=== PATIENT | male | born 1995 | race Caucasian/White ===

== ENCOUNTER 2017-02-01 14:40 | Emergency (ER) | payer OTHER ==
[2017-02-01 14:50] VITALS: PULSE 108; RESP 16; TEMP 98.4; O2SAT 95
[2017-02-01] MEDS ORDERED: IBUPROFEN 600 MG TAB PO ONE (14:52)
--- NOTE | 2017-02-01 15:44 | EDPHY ---
H & P Time Seen by Provider: 02/01/17 14:56 HPI/ROS: This patient was walking and enthusiastically Labrador retriever who lunged at other dogs to go play twisting the patient's finger and causing immediate pain, deformity and a crack sound. Incident occurred shortly prior to arrival in his brought in by his mother by private vehicle for further evaluation of his right index finger injury. He reports the pain is moderate baseline and severe with movement of the finger. He reports some paresthesias or tingling to the distal phalanx of the affected finger. ROS: Neuro: As per HPI. No other complaints Integumentary: No lacerations. Musculoskeletal: No other injuries. Five-point ROS is otherwise negative Past Medical/Surgical History: Otherwise healthy Smoking Status: Never smoked Physical Exam: Physical Exam Vital signs are normal. General: No acute distress Eyes: Pupils equal and react to light. Extraocular motions are intact. Lungs: No respiratory distress. Cardiac: Brisk capillary refill is intact throughout. Skin: No rash or pallor. Musculoskeletal: Atraumatic normal except for right 2nd finger Right 2nd finger: Patient has gross deformity to the the index finger from the mid to distal and middle phalanx extending distally characterized by malrotation and radial deviation. The D IP joint is held in partial flexion. Neuro: Alert and oriented. The patient reports decreased sensation to light touch to the ulnar aspect of the affected finger. He has decreased, loss of 2 point discrimination in the ulnar distal phalanx but is maintained in the radial aspect of the distal phalanx. He has some limitation range of motion at the PIP I think primarily from pain. Initial differential diagnosis: Finger fracture versus dislocation versus fracture/dislocation Constitutional: Initial Vital Signs Temperature (C) 36.9 C 02/01/17 14:47 Heart Rate 108 H 02/01/17 14:47 Respiratory Rate 16 02/01/17 14:47 Blood Pressure 143/81 H 02/01/17 14:47 O2 Sat (%) 95 02/01/17 14:47 O2 Delivery Mode Room Air Allergies/Adverse Reactions: No Known Allergies Allergy (Verified 02/01/17 14:46) Home Medications: Medication Instructions Recorded NO HOME MEDS 11/19/09 MDM/Departure - MDM Diagnostics: Three-view finger x-ray 1.: Fracture of the middle phalanx with ulnar deviation angulation and mild displacement. By my interpretation Post reduction two view x-ray: near anatomic reduction with significant improvement in alignment and angulation by my interpretation Imaging Results: Imaging Impressions Finger X-Ray 02/01/17 14:53 Impression: Fracture of the middle phalanx of the right second digit. Finger X-Ray 02/01/17 15:41 Impression: Near anatomic reduction of fracture of the middle phalanx second finger. Imaging: I viewed and interpreted images myself Procedures: 1st procedure: Procedure Digital block: After verbal consent, 2% lidocaine was injected to the base of the affected finger 9 mL's,total in 3 injections using a 27-gauge needle with good effect. There were no complications. 2nd procedure: Closed reduction Indication: Fracture deformity with acute neuro deficit and mild skin tenting After verbal consent, I applied traction to the affected finger with ulnar deviation with positive reduction. Patient tolerated this well. There were no complications. Patient is then placed in Orthoglass splint Medications Given: Discontinued Medications Ibuprofen (Motrin) 600 mg PO EDNOW ONE Stop: 02/01/17 14:53 Last Admin: 02/01/17 15:02 Dose: 600 mg ED Course/Re-evaluation: I applied and Ortho Glass tear drop/radial gutter splint with assistance of our nurse and tech. Patient tolerated this well. He is neurovascularly intact post splint application. There were no complications. We counseled him regarding splint care. Discussion: Patient with displaced and angulated fracture with associated digital nerve deficits to light touch perhaps due to the pressure on the nerve from the displacement with near anatomical reduction and splinting. I counseled the patient regarding his fracture regarding his neurapraxia. Dr. aguiar's on-call patient will follow up with Dr. aguiar for further evaluation later this week. Given lack of open fracture laceration, I feel the patient has a good prognosis for return of his sensory deficit in the affected finger. - Depart Disposition: Home, Routine, Self-Care Clinical Impression: digital nerve deficit Finger fracture, right Qualifiers: Encounter type: initial encounter Finger: index finger Fracture type: closed Phalanx: middle Fracture alignment: displaced Qualified Code(s): S62.620A - Displaced fracture of middle phalanx of right index finger, initial encounter for closed fracture Condition: Good Instructions: Finger Fracture (ED) Additional Instructions: Diagnoses: 1. Displaced finger fracture 2. Digital nerve deficit to affected finger Plan: Keep splint on at all times The anesthetic should resolve over the next 2-6 hours. Ibuprofen and Tylenol for discomfort if needed Call Dr. aguiar-hand specialist arrange follow-up appointment for sometime within the next 2-5 days. Usually this type of nerve deficit will resolve over the course of days 2 weeks and return to normal function but occasionally there is permanent deficit. Return if he develops unbearable pain, worsening numbness or other concerns Referrals: Unknown,Unknown [Primary Care Provider] - As per Instructions Alin Aguiar MD [Medical Doctor] - As per Instructions
[2017-02-01 16:23] VITALS: BP 104/92
== END 2017-02-01 16:21 | disposition home or self-care (01) ==
LOC: CED 14:40
PROC: 0PSTXZZ Reposition Right Finger Phalanx, External Approach (ICD-10-PCS; principal; 2017-02-01)
DX: S62.620A Displaced fracture of middle phalanx of right index finger, initial encounter for closed fracture (principal); S64.490A Injury of digital nerve of right index finger, initial encounter; X58.XXXA Exposure to other specified factors, initial encounter; Y99.8 Other external cause status; Y93.01 Activity, walking, marching and hiking
CPT/HCPCS: 73140-PO